=== PATIENT | female | born 1995 ===

== ENCOUNTER → 2017-05-21 | Outpatient (CLI) | payer BC ==
[~2017-05-21] MED LIST: ACTCL PO
[2017-05-25 02:32] LABS: CHLAMYDIA TRACH RNA*** NOT DETECTED (NOT DETECTED); GC (NEIS GONORRHOEAE)RNA** NOT DETECTED (NOT DETECTED)
== END | disposition home or self-care (01) ==
LOC: MERGE 13:52 → C.LABSPEC 13:52
PROVIDERS: ATTEND Physician Assistant
DX: N93.0 Postcoital and contact bleeding (principal)

== ENCOUNTER → 2017-05-21 | Outpatient (CLI) | payer BC | END | disposition home or self-care (01) | LOC: MERGE 14:18 → C.PAPS 14:18 | PROVIDERS: ATTEND Physician Assistant | DX: N93.0 Postcoital and contact bleeding (principal); Z11.51 Encounter for screening for human papillomavirus (HPV); Z01.419 Encounter for gynecological examination (general) (routine) without abnormal findings ==